=== PATIENT | male | born 1965 | race Caucasian/White ===

== ENCOUNTER 2020-01-31 12:35 | Outpatient (REF) | payer OTHER, SELFPAY ==
[2020-01-31 14:17] LABS: MANUAL DIFF FLAG NO
[2020-01-31 14:27] LABS: Basophils Percent Auto 0.9 % (0-2); Eosinophils Absolute Auto 0.1 X10*3/uL (0.0-0.4); Eosinophils Percent Auto 1.4 % (0-4); Hematocrit 43.6 % (42-52); Hemoglobin 14.4 g/dl (14.0-18.0); Imm Gran Abs Auto 0.01 X10*3/uL (0.00-0.03); Imm Gran Pct Auto 0.2 % (0.0-0.4); Lymphocytes Absolute Auto 1.1 X10*3/uL (1.2-4.9); Lymphocytes Percent Auto 26.2 % (20-40); Mean Corpuscular Hemoglobin 30.6 pg (27.0-33.0); Mean Corpuscular Volume 92.8 fL (80-98); Mean Platelet Volume 11.2 fL (9.4-12.4); Monocytes Absolute Auto 0.4 X10*3/uL (0.1-1.2); Monocytes Percent Auto 9.3 % (2-11); Neutrophils Absolute Auto 2.7 X10*3/uL (2.0-8.3); Platelet Count 169 X10*3/uL (160-400); Red Cell Distribution Width 12.6 % (11.0-16.0); White Blood Count 4.3 X10*3/uL (4.8-10.8)
[2020-01-31 14:38] LABS: Alanine Aminotransferase 28 U/L (0-40); Albumin Level 4.4 g/dL (3.5-5.0); Alkaline Phosphatase 56 U/L (39-117); Anion Gap 10 (12-20); Aspartate Amino Transferase 25 U/L (5-37); Bilirubin Total 0.8 mg/dL (0.0-1.0); Blood Urea Nitrogen 21 mg/dL (9-16); Calcium 8.6 mg/dL (8.4-10.2); Carbon Dioxide 29 mmol/L (22-29); Chloride 104 mmol/L (96-108); Estimated Glomerular Filt Rate > 60; Glucose Random 96 mg/dL (60-115); Potassium 4.6 mmol/l (3.3-5.1); Sodium 138 mmol/L (135-145); Total Protein 6.7 g/dL (6.5-8.0)
== END 2020-01-31 12:36 | disposition home or self-care (01) ==
LOC: HO.LDS 12:35
PROVIDERS: Visit Provider Family Medicine
DX: R10.84 Generalized abdominal pain (principal)
CPT/HCPCS: 36415; 80053; 85025

== ENCOUNTER 2025-01-02 13:25 | Outpatient (AMB) | payer OTHER, SELFPAY ==
--- OUTSIDE RECORDS SUMMARY | 2023-08-02 09:30 | XMS_ITS ---
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 Name Role Phone Bruno Jesus Primary Care Provider Unavailab MARGIE Rizzo Unavailable [phone] Encounters Encounter Location Date Provider Diagnosis [facility] [address] [address] 08/02/2023 MARGIE ADY Plan Of Treatment No Information Progress Notes * West CHOIwDOB: [birth year] (59 yo M)Acc No.[id number]:08/02/2023 Progress Notes Patient: Thierno RAMIREZ Provider: Jam Day MD :1965 A ge:58 Y S ex:Male Date:08/02/2023 Address:[address] [place], [place] [id number] Pcp:Bruno Jesus Subjective: * Chief Complaints: * * Medical History: Objective: * Vitals: Assessment: Plan: * Treatment: Care Plan: * Problems: * * Electronic signature of FRANCY DAY MD on 01/02/2025 at 05:23 PM EDT Sign off status: Pending * Provider: Jam Day MD Date: 08/02/2023 Generated for Sal ruby/Mora/Cjitting on: 01/02/2025 05:23 PM EDT
--- NOTE | 2025-01-02 13:28 | MHC.PC.OV ---
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 Intake Note: New patient to establish care Supervisor Customer Records Division Required: No Allergies No Known Allergies Allergy (Verified 01/02/25 13:49) Medication List - Last Reconciled 01/02/25 by ZAINAB Cotto-BC gabapentin 300 mg PO DAILY PRN hydroxyzine HCl mg PO lidocaine HCl 4% (Aspercreme (lidocaine HCl)) 1 appl topical TID pregabalin mg PO Tobacco use date assessed: 01/02/25 Dental Screening Dental Screen Date: 01/02/25 Did you have a dental visit in the last 12 months?: No Did you have a dental problem in the last 6 months where you did not have access to dental care?: No Was dental information given to patient?: Patient has dentist HPI HPI Comments History of Present Illness Details 59 y/o M with chronic low back pain, STELLA, family hx colon ca, hx of GIB d/t NSAIDS, s/p lumbar fusion L5-S1 ALIF Fhx: colon ca in Dad Health Maintenance Tdap declined. Flu declined Colon has never had; referred today Specialist Pain Mgmt History of Present Illness - The patient is a 29-year-old male presenting to [facility] care for a CPE CC: Eye concerns - Present for over a month with swelling below eyes, especially upon waking. Has red chalazion like area inside right lower lid. has some swelling around lashes. No drainage. - The eye is red but is not associated with significant pain or blurred vision. - No prior professional evaluation or treatment; home remedies limited to warm compresses. - Possible exacerbation from facial products. Past Surgical History - Lumbar Fusion at L5-S1 in 2019 Family History - Father due to Colon Cancer Health Maintenance - Colonoscopy is recommended due to family history of colon cancer and patient?s age. - patient denied all vaccinations. - Discussion about eye health and potential need for ophthalmologic evaluation. Review of Systems - Eyes: Reports swelling and redness on the right upper eyelid; denies pain or blurred vision. - Cardiovascular: Denies consistent elevated blood pressure. - Ears: Denies feelings of blockage; reports normal hearing. - Neurological: Denies dizziness beyond a brief episode upon rising quickly. Physical Exam General: Well developed, well nourished, in no acute distress. Appears stated age. Head: Normocephalic, atraumatic. Eyes: PERRLA, EOMI. Scleras and conjunctiva clear. Has some prominence of follicles around lower lashes bilat; red blister like area inside right lower lid. Ears: TMs clear AU after lavage on R, EACS WNL. Nose: Patent, without discharge. Neck: Supple, no adenopathy or thyromegaly. Breast: Edu on SBE Lungs: Clear to auscultation bilaterally. No rales, rhonchi or wheeze noted. Good air flow in all villarreal. Heart: Regular rate and rhythm. No murmurs, click, rubs or gallops are noted. Abdomen: Bowel sounds present in all quadrants. The abdomen is soft, nontender, with no masses or organomegaly noted. No hernias are noted. : Deferred. Reviewed MARTHA & recommendations Pulses: Peripheral pulses are equal and palpable bilaterally. Extremities: No clubbing, cyanosis nor edema is noted. Neurologic: Gait and station normal. Cranial Nerves 2-12 intact. Motor strength grossly symmetrical and intact. No sensory loss. Balance normal. Skin: No rashes, ulcers, or lesions noted. Turgor is good. Skin color is good. Hair and nails are without abnormalities. Psych: Normal eye contact, affect and mood appropriate, and normal interactions. Patient is alert and appropriate to context. Results Declined all labs. Discussion Notes We talked about using an antibiotic ointment for the eye and recommended continuing the cool compresses to help resolve any swelling. I advised that if the symptoms do not improve, a see to an gun numberer is necessary. We also discussed the importance of a colonoscopy due to the patient's family history of colon cancer, with plans for referral to a gastroenterology group at [facility]. We reviewed the patient's blood pressure and deemed it manageable at this time. Lastly, I informed the patient about lifestyle changes, including adjusting the use of facial creams around the eyes if symptoms persist. Patient was given time to ask questions. All questions were answered to their satisfaction. Assessment and Plan 1. Eye complaint - Use antibiotic eye ointment. - Continue compresses. try black tea - Furniture Delivery Driver referral recommended 2. Elevated Blood Pressure - Rechecked to normal range; monitor at home. 3. Colonoscopy - Referral for colonoscopy provided. Declined labs and vaccines. Patient Instructions - Use the antibiotic ointment on the eyes twice per day. - Apply warm compresses three times daily for five minutes. - Avoid using face creams around eyes until swelling resolves. - Monitor blood pressure at home; rest and retake if feeling elevated. - Schedule and attend the referral appointment for a colonoscopy. - Watch for eye condition improvement, and seek follow-up care if unchanged. - RTO 1 year CPE sooner as needed. Consent I obtained verbal consent from the patient for the use of antibiotic ointment, explaining the benefits of reducing infection in the chalazion. We discussed alternatives, such as warm compress use, as well as the necessity for potential further ophthalmic evaluation if no improvement occurs. Consent for colonoscopy consultation was also acquired, emphasizing the importance of screening due to his family history. The patient acknowledged understanding of the risks and benefits, and agreed to the treatment plan. Patient was informed and verbally consented to the use of an ambient scribe for clinic note documentation during this visit. An additional 30 minutes was spent addressing the problem(s) noted at todays visit. This includes time spent before the visit reviewing the chart, time spent during the visit, and time spent after the visit on documentation reviewing laboratory results, diagnostic imaging, medications, performing a medically necessary evaluation, counseling on diagnoses, care coordination, ordering appropriate tests, ordering appropriate medications, review of tests performed by other providers, reporting test results with the patient, communication with other healthcare providers. [facility] Medical History (Updated 01/02/25 @ 14:12 by Cassandra Rose, [facility]) Back injury Spine disorder Surgical History (Updated 01/02/25 @ 13:40 by Cassandra Dan MA) Previous back surgery (~2019) S/P lumbar fusion Family History (Updated 01/02/25 @ 13:42 by Cassandra Dan MA) Mother HTN (hypertension) Thyroid disorder Paternal Grandmother High cholesterol Diabetes Cardiovascular disease Father Diabetes Cardiovascular disease Colon cancer Social History (Updated 01/02/25 @ 13:39 by Cassandra Dan MA) Household Members: Other Household Members Other:: Brother Both parents involved: No Caregiver staying overnight: No Housing: Apartment Are you a primary child adolescent care to a significant other at home: No Do you presently have visiting nurse or other home services: No 75 years or older and lives alone: No Alcohol intake: never Patient Tobacco Use Status: Never used Tobacco e-Cigarette/Vaping Use: Never Used Second Hand Smoke Exposure: No service: No Current occupational status: employed 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 1. Little interest or pleasure in doing things: not at all 2. Feeling down, depressed, or hopeless: not at all 3. Trouble falling or staying asleep, or sleeping too much: several days 4. Feeling tired or having little energy: several days 5. Poor appetite or overeating: not at all 6. Feeling bad about yourself - or that you are a failure or have let yourself or your family down: not at all 7. Trouble concentrating on things, such as reading the newspaper or watching television: not at all 8. Moving or speaking so slowly that other people could have noticed. Or the opposite - being so fidgety or restless that you have been moving around a lot more than usual: not at all 9. Thoughts that you would be better off or of hurting yourself in some way: not at all Total score: 2 Depression Screening Interpretation: Negative Depression Screening Done: Yes 59153 - PHQ-9 Billing: Yes Source: Developed by Drs. Bryce Hightower, Janel Nunn, Raul Red and colleagues, with an educational tirso from [employer]. Thrive Questionnaire Date Thrive assessed: 01/02/25 I am a: Patient What is your living situation today?: I have a steady place to live Within the past 12 months, did the food you bought not last and you didn't have the money to get more?: Never true Within the past 12 months, did you worry whether your food would run out before you got money to buy more?: Never true Do you have trouble paying for medicines?: No Do you have trouble getting transportation to medical appointments?: No Do you have trouble paying your heating and electricity bill?: No Do you have trouble taking care of your child, family member or friend?: No Do you have trouble with day-to-day activities such as bathing, preparing meals, shopping, managing finances, etc.?: I choose not to answer this question Are you currently unemployed and looking for a job?: No Are you interested in more education?: No Please select the resources that you would like help with: None Currently or been in a relationship where the following occur: No concerns reported THRIVE Score: 0 AUDIT C Alcohol Use Questionnaire (AUDIT-C) 1. How often do you have a drink containing alcohol?: Never 3. How often do you have six or more drinks on one occasion?: Never Total Score: 0 STELLA-7 AMB Questionnaire STELLA-7 Date STELLA - 7 assessed: 01/02/25 Feeling nervous, anxious, or on edge: 0 = Not at all Not being able to stop or control worryin = Not at all Worrying too much about different things: 0 = Not at all Trouble relaxin = Not at all Being so restless that it is hard to sit still: 0 = Not at all Becoming easily annoyed or irritable: 0 = Not at all Feeling afraid as if something awful might happen: 0 = Not at all Total STELLA-7 score (0-4 normal; 5-9 mild; 10-14 moderate; 15-21 severe): 0 Source: Developed by Drs. Bryce Hightower, Janel Nunn, Raul Red and colleagues, with an educational tirso from [employer]. STELLA-7 Assessment Billing STELLA-7 Assessment Tool: STELLA-7 Assessment 14201 Physical exam (Primary Care) Vital Signs: Last Vital Signs Temp 97.1 F 01/02/25 13:36 Pulse 88 01/02/25 13:36 Resp 13 01/02/25 13:36 BP 154/80 H 01/02/25 13:36 Pulse Ox 99 01/02/25 13:36 Oxygen Delivery Method Room Air 01/02/25 13:36 BMI result Body Mass Index 27.4 Tobacco/Smoking Status: Tobacco use Status Tobacco use date assessed 01/02/25 01/02/25 13:31 Patient Tobacco Use Status Never used Tobacco 01/02/25 13:39 e-Cigarette/Vaping Use Never Used 01/02/25 13:39 PHQ-9: PHQ-9 Score PHQ-9: Total score 2 01/02/25 13:31 Depression Screening Interpretation: Negative Thrive Assessment: Date of Thrive Assessment Date Thrive assessed 01/02/25 01/02/25 13:31 Currently or been in a relationship where the following occur: No concerns reported Office Procedures Cerumen Removal From which ear canal was the cerumen removed: right Removal: irrigation Notes: patient tolerated procedure well, no complications and ear canal clear 33783-Bbi Irrigation/Lavage Coding Level of Care Code New Pt Level 3 (69679) New Pt Prev Care 40-64y(04170) Diagnoses Encounter to establish care with new provider Z76.89 Discomfort of both eyes H57.13 Laterality: bilateral Family history of colon cancer in father Z80.0 Right ear impacted cerumen H61.21 Encounter for general adult medical examination without abnormal findings Z00.00 STELLA (generalized anxiety disorder) F41.1 S/P lumbar fusion Z98.1 CPT Codes Office Procedure - CPT: 54970-Slb Irrigation/Lavage ([id number]) Additional Codes STELLA-7 Assessment Billing - STELLA-7 Assessment Tool: STELLA-7 Assessment 81237 ([id number]) PHQ-9 - 06841 - PHQ-9 Billing: Yes ([id number]) Assessment & Plan Assessment & Plan (1) Encounter to establish care with new provider: Code(s): Z76.89 - Persons encountering health services in other specified circumstances (2) Eye discomfort: Code(s): H57.10 - Ocular pain, unspecified eye Category: Medical Qualifiers: Laterality: bilateral Qualified Code(s): H57.13 - Ocular pain, bilateral (3) Family history of colon cancer in father: Code(s): Z80.0 - Family history of malignant neoplasm of digestive organs Category: Medical (4) Right ear impacted cerumen: Code(s): H61.21 - Impacted cerumen, right ear (5) Encounter for general adult medical examination without abnormal findings: Onset Date: ~01/02/25 Code(s): Z00.00 - Encounter for general adult medical examination without abnormal findings Category: Medical (6) STELLA (generalized anxiety disorder): Code(s): F41.1 - Generalized anxiety disorder Category: Medical (7) S/P lumbar fusion: Code(s): Z98.1 - Arthrodesis status Category: Surgical Plan . Orders: Referrals Gastroenterology Referral Z12.11 - Encounter for screening for malignant neoplasm of colon, Z80.0 - Family history of malignant neoplasm of digestive organs Ophthalmology Referral H57.10 - Ocular pain, unspecified eye Medications: New erythromycin 0.5 inches ophthalmic (eye) BID 3.5 grams 0RF 5 days Patient Instructions: Walk-In Care (Urgent Care): We Make it Easy Walk-in for urgent medical issues such as: ? Seasonal Allergies ? Insect Bites ? Cough ? Diarrhea ? Acute Asthma Attacks ? Back, Knee or Joint Pain ? Ear Infection ? Fever without a Rash ? Headaches ? Nausea ? [place], Rash or Skin Irritation ? Sore Throat ? Sports Physicals ? Vomiting Most insurances are accepted. Patients do not need to be part of the [facility] to seek care at the walk-in clinic. Locations [facility] [place] [address] ? [phone] [facility] in [place] provides services to ages 18 and over. Open Monday-Monday: 7 a.m. to 5 p.m. and Monday: 9 a.m. to 3 p.m.* *Hours may vary due to staffing availability. To confirm Walk-In Care hours in [place], please call [phone]. [address] [place] [address] ? [phone] [facility] in [place] provides services to ages 12 and over. Open Monday-Monday: 8 a.m. to 5 p.m. Hours may vary due to staffing availability. To confirm Walk-In Care hours in [place], please call [phone]. LABORATORY SERVICES: [facility] ? Primary Location [address] [place] [address] Monday through Monday 6:00 AM ? 5:00 PM Monday 7:00 AM ? 11:00 AM* [phone] The [facility] is centrally located near the front entrance of the [facility] for easy outpatient access. Convenient parking is provided for outpatients. *Hours may vary due to staffing availability. To confirm Laboratory hours for any location, please call [phone]. Offsite Location For your convenience, we offer offsite laboratory draw stations at the following locations: [address] [facility], [place] ? [address] [facility], [address], [place] Monday through Monday 7:30 AM ? 1:00 PM* [phone] *Hours may vary due to staffing availability. To confirm Laboratory hours for any location, please call [phone]. [place] ? [address] [facility] [place], [place] Monday through Monday 6:00 AM ? 3:30 PM* Monday 6:30 AM ? 3 PM* [phone] *Hours may vary due to staffing availability. To confirm Laboratory hours for any location, please call [phone]. [address] [facility] Monday through Monday 7:30 AM ? 4:00 PM* [phone] *Hours may vary due to staffing availability. To confirm Laboratory hours for any location, please call [phone] [place] [address] Monday through 9:00 AM ? 4:00 PM* *Hours may vary due to staffing availability. To confirm Laboratory hours for any location, please call [phone]. Appointments are not necessary. Walk-ins are welcome. Like all the departments throughout the [facility], our Lab undergoes frequent reviews to ensure the quality and accuracy of test results, and our staff takes special pride in its status as a nationally accredited facility. Patient Portal: [facility] ONE PATIENT. ONE RECORD. BETTER CARE. [facility] has a fully integrated, cutting-edge mobile electronic health information system that has revolutionized the way we care for our patients and manage our organization. This system improves communication and coordination enabling us to provide safe, higher-quality care, and an overall positive experience for staff and patients. Our first priority, as always, is to deliver the highest quality care possible. The system is running in the background supporting that priority. This portal is for all [facility] services and practices. If you are experiencing any technical difficulties with enrolling or logging into the Patient Portal please complete the [facility] Patient Portal Technical Support Form. [facility] [place] [facility] now offers a new secure on-line interactive tool for patients to review their health information ? ?Patient Portal. This interactive web portal will enable patients and their families to take an active role in their care by providing easy, secure access to their health information via the internet. The Patient Portal provides patients with instant access to their health information, including laboratory results, medications, allergies, demographic information, visit history, and more. In addition to managing their own care, parents and health care proxies with authorized consent will appreciate the ability to access the records of those individuals for whom they provide care. Please note: if you wish to gain access (Proxy) to another patient?s portal, you will be required to come to the Medical Records Department in person at [facility]. Both the patient giving proxy access and the proxy will need to provide photo identification and complete the appropriate authorization. The Patient Portal also allows track their appointments online. The [facility] Patient Portal also saves patients time by allowing them to submit updates to their demographic and contact information prior to their visits. Portal email notifications will also alert patients to any new activity on their portal, such as test results and new appointments. In order to initially enroll in the [facility] Patient Portal, you will need to enter some required information including the following: your [facility] Medical Record number your personal home email address name date of Please note: In order to enroll in the [facility] Patient Portal, we need to have your email address on file in your electronic medical record. ?The email address needs to be specific for one person (yourself) in order for your Portal enrollment to be successful. ?You can update your email address in person with our Registration staff when you are registering for a hospital visit. ?Otherwise, you will need to come to the Health Information Management (Medical Records) Department at [facility]. ?We are open from Monday ? Monday from 7:30 a.m. ? 4:30 p.m. ?You will be required to present a photo id. Once you have successfully enrolled in the Patient Portal, you will receive a one-time user id and password for the Portal, sent to your email address. ?This will allow you to log into the Patient Portal within 99 hrs and reset your own logon id and password, and define personal security questions. ?Once your permanent login and password have been set, you can log into the [facility] Patient Portal at any time via the blue button above or from the Portal Logon button on any page of the [facility] website. [facility] encourage all of our patients to enroll in Patient Portal as it presents a valuable opportunity for patients and their families to actively participate in their care and stay healthy Welcome to [facility]. ?We look forward to working with you. Health screenings for men You should visit your health care provider regularly, even if you feel healthy. The purpose of these visits is to: Screen for medical issues Assess your risk for future medical problems Encourage a healthy lifestyle Update vaccinations and other preventive care services Help you get to know your provider in case of an illness Information Even if you feel fine, you should still see your provider for regular checkups. These visits can help you avoid problems in the future. For example, the only way to find out if you have high blood pressure is to have it checked regularly. High blood sugar and high cholesterol level also may not have any symptoms in the early stages. Simple blood tests can check for these conditions. There are specific times when you should see your provider or receive specific health screenings. The [place] Preventive Services Task Force publishes a list of recommended screenings. Below are screening guidelines for men ages 40 to 64. BLOOD PRESSURE SCREENING Have your blood pressure checked at least once every year. Watch for blood pressure screenings in your area. Ask your provider if you can stop in to have your blood pressure checked. Ask your provider if you need your blood pressure checked more often if: You have diabetes, heart disease, kidney problems, or are overweight or have certain other health conditions You have a first-degree relative with high blood pressure You are Black Your blood pressure top number is from 120 to 129 mm Hg, or the bottom number is from 70 to 79 mm Hg If the top number is 130 mm Hg or greater or the bottom number is 80 mm Hg or greater, this is considered stage 1 hypertension. Schedule an appointment with your provider to learn how you can lower your blood pressure. Effects of age on blood pressure CHOLESTEROL SCREENING Cholesterol screening should begin at age 35 for men with no known risk factors for coronary heart disease. Repeat cholesterol screening should take place: Every 5 years for men with normal cholesterol levels More often if changes occur in lifestyle (including weight gain and diet) More often if you have diabetes, heart disease, kidney problems, or certain other conditions COLORECTAL CANCER SCREENING If you are under age 45, talk to your provider about getting screened. You may need to be screened if you have a strong family history of colon cancer or polyps. Screening may also be considered if you have risk factors such as a history of inflammatory bowel disease or polyps. If you are age 45 to 75, you should be screened for colorectal cancer. There are several screening tests available: A stool-based fecal occult blood (gFOBT) or fecal immunochemical test (FIT) every year A stool sDNA test every 1 to 3 years Flexible sigmoidoscopy every 5 years or every 10 years with stool testing FIT done every year CT colonography (virtual colonoscopy) every 5 years Colonoscopy every 10 years You may need a colonoscopy more often if you have risk factors for colorectal cancer, such as: Ulcerative colitis A personal or family history of colorectal cancer A history of growths in your colon called adenomatous polyps DENTAL EXAM Go to the dentist once or twice every year for an exam and cleaning. Your dentist will evaluate if you have a need for more frequent visits. DIABETES SCREENING All adults who do not have risk factors for diabetes should be screened starting at age 35 and repeated every 3 years. If you have other risk factors for diabetes, such as a first degree relative with diabetes, overweight or obesity, high blood pressure, prediabetes, or a history of heart disease, you may be tested more often. If you are overweight and have other risk factors, such as high blood pressure and are planning to become , screening is recommended. EYE EXAM Have an eye exam every 2 to 4 years ages 40 to 54 and every 1 to 3 years ages 55 to 64. Your provider may recommend more frequent eye exams if you have vision problems or glaucoma risk. Have an eye exam that includes an examination of your retina (back of your eye) at least every year if you have diabetes. IMMUNIZATIONS Commonly needed vaccines include: Flu shot: get one every year COVID-19 vaccine: ask your provider what is best for you Tetanus-diphtheria and acellular pertussis (Tdap) vaccine: have as one of your tetanus-diphtheria vaccines if you did not receive it as an adolescent Tetanus-diphtheria: have a booster (or Tdap) every 10 years Varicella vaccine: receive 2 doses if you never had chickenpox or the varicella vaccine and were born in 1980 or after Hepatitis B vaccine: receive 2, 3, or 4 doses, depending on your exact circumstances, if you did not receive these as a child or adolescent, until age 59 Shingles (herpes zoster) vaccine: at or after age 50 Ask your provider if you should receive other immunizations, especially if you have certain medical conditions, such as diabetes or are at increased risk for some diseases such as pneumonia. INFECTIOUS DISEASE SCREENING Screening for hepatitis C: all adults ages 18 to 79 should get a one-time test for hepatitis C. Screening for human immunodeficiency virus (HIV): all people ages 15 to 65 should get a one-time test for HIV. Depending on your lifestyle and medical history, you may need to be screened for infections such as syphilis, chlamydia, and other infections. LUNG CANCER SCREENING You should have an annual screening for lung cancer with low-dose computed tomography (LDCT) if: You are age 50 to 80 years AND You have a 20 pack-year smoking history AND You currently smoke or have quit within the past 15 years OSTEOPOROSIS SCREENING If you are age 50 to 64 and have risk factors for osteoporosis, you should discuss screening with your provider. Risk factors can include long-term steroid use, low body weight, smoking, heavy alcohol use, having a fracture after age 50, or a family history of hip fracture or osteoporosis. Osteoporosis PHYSICAL EXAM All adults should visit their provider from time to time, even if they are healthy. The purpose of these visits is to: Screen for diseases Assess risk of future medical problems Encourage a healthy lifestyle Update vaccinations and other preventive care services Maintain a relationship with a provider in case of an illness Your height, weight, and body mass index (BMI) should be checked at every exam. During your exam, your provider may ask you about: Depression and anxiety Diet and exercise Alcohol and tobacco use Safety, such as use of seat belts and smoke detectors Your medicines and risk for interactions PROSTATE CANCER SCREENING If you're 55 through 69 years old, before having the test, talk to your provider about the pros and cons of having a PSA test. Ask about: Whether screening decreases your chance of dying from prostate cancer. Whether there is any harm from prostate cancer screening, such as side effects from testing or overtreatment of cancer when discovered. Whether you have a higher risk of prostate cancer than others. If you are age 55 or younger, screening is not generally recommended. You should talk with your provider about if you have a higher risk for prostate cancer. Risk factors include: Having a family history of prostate cancer (especially a brother or father) Being If you choose to be tested, the PSA blood test is repeated over time (yearly or less often), though the best frequency is not known. Prostate examinations are no longer routinely done on men with no symptoms. Prostate cancer SKIN EXAM Your provider may check your skin for signs of skin cancer, especially if you're at high risk. People at high risk include those who have had skin cancer before, have close relatives with skin cancer, or have a weakened immune system. TESTICULAR EXAM The [place] Preventive Services Task Force (USPSTF) now recommends against performing testicular self-exams. Doing testicular self-exams has been shown to have little to no benefit.
[2025-01-02 13:36] VITALS: BP 154/80; PULSE 88; RESP 13; TEMP 36.2; O2SAT 99; BMI 27.4
[2025-01-02 13:58] VITALS: BP 132/72
--- OUTSIDE RECORDS SUMMARY | 2025-01-02 17:23 | XMS_ITS | Clinical Summary ---
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 Role Phone Unavailable Primary Care Provider Unavailabl e Allergies No known active allergies Medications gabapentin (NEURONTIN) 300 MG capsuleIndicatio ns:Neuropathic Pain Take 300 mg by mouth 3 (three) times a day Active Social History Tobacco Use Types Packs/Day Years Used Date Smoking Tobacco: Never Assessed Sex and Gender Information Value Date Recorded Sex Assigned at Not on file Legal Sex Male 11:28 AM EST Gender Identity Not on file Sexual Orientation Not on file Last Filed Vital Signs Vital Sign Reading Time Taken Comments Blood Pressure 94/57 06/12/2019 12:06 PM EST Pulse 72 06/12/2019 12:06 PM EST Temperature - - Respiratory Rate - - Oxygen Saturation - - Inhaled Oxygen Concentration - - Weight - - Height - - Body Mass Index - - Plan of Treatment Health Maintenance Due Date Last Done Comments Hepatitis B Vaccine (1 of 3 - 19+ 3-dose series) 07/23 Colorectal Cancer Screening: Annual FOBT 2014 Colorectal Cancer Screening: Colonoscopy 2014 Colorectal Cancer Screening: Sigmoidoscopy 2014 Pneumococcal Vaccine: 50+ Years (1 of 1 - PCV) 016 Influenza Vaccine (#1) 2024 Insurance C[employer]
--- OUTSIDE RECORDS SUMMARY | 2025-01-02 17:23 | XMS_ITS | Patient Health Record ---
Author Organization 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 Role Phone Bruno Jesus Primary Care Provider Unavailab jaqueline ROWEAIMARGIE Unavailable [phone] Allergies No Known Allergies Reason For Referral No Information Medications Medication SIG (Take, Route, Fr equency, Duration) Notes Start Date End Date Status Etodolac 200 MG 1 capsule with food as needed Orally every 8 hrs; Duration: 3 days 04/11/2024 Active predniSONE 20 MG with food or milk Or ally 3 tablets daily for 3 days, then 2 tablets daily for 2 days, then 1 tablet dailiy for 2 days; Duration: 7 day(s) 01/14/2021 Active Medrol (Kuldeep) 4 MG as directed Orally T imelda with food, do not take Advil 08/03/2021 Active Gabapentin 300 MG 1 capsule Orally 1-3 times a day Active Social History Tobacco Use: Social History Observation Description Date Details (start date - stop date) Never Smoker NA - NA Tobacco Use/Smoking Question Answer Notes Are you a nonsmoker Alcohol Screen (Audit-C) Question Answer Notes Did you have a drink containing alcohol in the p ast year? No Points 0 Interpretation Negative Section Notes: Independent with ADL's. Davie es illicit drug use. Not working due to injury. Independent with ADL's. Davie es illicit drug use. Not working due to injury. Independent with ADL's. Davie es illicit drug use. Not working due to injury. Independent with ADL's. Davie es illicit drug use. Not working due to injury. Independent with ADL's. Davie es illicit drug use. Not working due to injury. Independent with ADL's. Davie es illicit drug use. Not working due to injury. Independent with ADL's. [place]ie es illicit drug use. Not working due to injury. Independent with ADL's. [place]ie es illicit drug use. Not working due to injury. Independent with ADL's. [place]ie es illicit drug use. Not working due to injury. Independent with ADL's. Davie es illicit drug use. Not working due to injury. Independent with ADL's. Davie es illicit drug use. Not working due to injury. Independent with ADL's. Davie es illicit drug use. Not working due to injury. Independent with ADL's. Davie es illicit drug use. Not working due to injury. Independent with ADL's. Davie es illicit drug use. Not working due to injury. Independent with ADL's. Davie es illicit drug use. Not working due to injury. 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.362 Assessments Encounter Date Diagnosis (ICD Code) Assessment Notes Treatment Notes Treatment Clinical Notes Section Notes 04/11/2024 Radiculopathy, lumbar region (ICD-10 - M54.16) 04/11/2024 Other intervertebral disc degeneration, lumbar region with discogenic back pain and lower extremity pain (ICD-10 - M51.362) Plan Of Treatment Pending Test Test Name Order Date MRI : Lumbar with and without Contrast 0 05/12/2020 MRI : Lumbar with and without Contrast 1 MRI : Lumbar without contrast 03/30/2020 MRI : Lumbar without contrast 12/29/2021 Insurance Providers Payer Name Payer Address Payer Phone Subscriber Number Group Number Insured Name Patient Relationship to Insured Coverage Start Date Coverage End Date Claims Management Kristian Blanca [facility] [address] [address] [place] [address] [id number] DOI [phone] Thierno Elias Self - patient is the insured Medical (General) History Surgical History Surgery Date(Month/Year) L-Spine fusion
== END 2025-01-02 16:27 | disposition home or self-care (01) ==
LOC: HO.HMCFM 13:26
PROVIDERS: PCP Nurse Practitioner Family; Visit Provider Nurse Practitioner Family
DX: Z00.00 Encounter for general adult medical examination without abnormal findings (principal); H57.13 Ocular pain, bilateral; H61.21 Impacted cerumen, right ear; F41.1 Generalized anxiety disorder; Z76.89 Persons encountering health services in other specified circumstances; Z80.0 Family history of malignant neoplasm of digestive organs; Z98.1 Arthrodesis status

== ENCOUNTER → 2025-01-02 13:25 | Outpatient (BNVA) | payer OTHER, SELFPAY | PROVIDERS: PCP Nurse Practitioner Family; Visit Provider Nurse Practitioner Family | DX: Z00.00 Encounter for general adult medical examination without abnormal findings (principal); Z76.89 Persons encountering health services in other specified circumstances; H57.13 Ocular pain, bilateral; H61.21 Impacted cerumen, right ear; F41.1 Generalized anxiety disorder; Z98.1 Arthrodesis status; Z80.0 Family history of malignant neoplasm of digestive organs; Z13.31 Encounter for screening for depression; Z13.39 Encounter for screening examination for other mental health and behavioral disorders | CPT/HCPCS: 69209; 96127; 99202; 99386 ==